=== PATIENT | male | born 1990 | race Caucasian/White ===

== ENCOUNTER 2016-02-29 19:52 | Emergency (ER) | payer BC ==
[2016-02-29 21:25] VITALS: BP 140/79; O2SAT 100
--- NOTE | 2016-02-29 22:14 | RAD ---
EXAM DESCRIPTION: XR ELBOW 1-2 VIEWS CLINICAL HISTORY: 25 y/o M"pulled something in arm 2 days ago, swelling COMPARISON: None. TECHNIQUE: Two views of the left elbow. FINDINGS: No acute fractures or dislocations are identified. No osseous destructive lesions. No abnormal elbow fat pad. Stranding in the subcutaneous tissues consistent with edema, changes from cellulitis or contusion. IMPRESSION: No acute osseous abnormality is identified. There is stranding in the subcutaneous fatty tissues which could be edema, cellulitis or contusion. Electronically signed by: Jared Alonzo MD 02/29/2016 22:12
[2016-02-29] MEDS ORDERED: KETOROLAC TROMETHAMINE INJ 60 MG/2 ML VIAL IM ONE ×2 (22:25→22:33)
== END 2016-02-29 23:30 | disposition left against medical advice (07) ==
LOC: ER 19:52
DX: Z53.21 Procedure and treatment not carried out due to patient leaving prior to being seen by health care provider (principal)
CPT/HCPCS: 73070; J1885

== ENCOUNTER 2016-03-01 00:27 | Emergency (ER) | payer BC ==
[2016-03-01 01:01] VITALS: O2SAT 98
[2016-03-01] MEDS ORDERED: SODIUM CHLORIDE 0.9% 1000ML 1,000 ML IVS ONE (01:52)
[2016-03-01] MEDS ORDERED: CLINDAMYCIN IV 600MG 600 MG in PREMIX BAG 1 BAG IVPB ONE (01:55)
[2016-03-01] MEDS ORDERED: CLINDAMYCIN IV 600MG 50 ML IVPB ONE (02:05)
--- NOTE | 2016-03-01 03:55 | ED.PDOC ---
History of Present Illness - General Chief Complaint: Upper Extremity Injury Stated Complaint: Swelling, pain, redness to left arm Time Seen by Provider: 03/01/16 01:02 Source: patient, RN notes reviewed, Vital Signs reviewed Exam Limitations: no limitations - History of Present Illness Initial Comments: Patient is a 25 y/o male who was in the ER earlier today and left AMA. Patient has had swelling in his left arm for 4 days. He picked up a candle molder at a friends house, and his arm has been sore since. Now it is swollen with erythema and pain. Patient denies any injury other than picking up the candle molder. He left earlier today because he was tired of waiting and his children needed to get home. Occurred: other - 4 days ago Pain - Upper Extremity: severe: Upper arm, left, Elbow, left, Forearm, left, Wrist, left Method of Injury: unknown Improving Factors: immobilization Worsening Factors: movement Associated Symptoms: fatigue Allergies/Adverse Reactions: Allergies NO KNOWN ALLERGY Allergy (Verified 02/29/16 21:33) Home Medications: Ambulatory Orders Clindamycin HCl 300 mg PO TID #21 cap 03/01/16 Naproxen [Naprosyn] 500 mg PO BID #30 tab 03/01/16 Review of Systems - Review of Systems Constitutional: States: chills EENTM: States: no symptoms reported Respiratory: States: no symptoms reported Cardiology: States: no symptoms reported Gastrointestinal/Abdominal: States: no symptoms reported Genitourinary: States: no symptoms reported Musculoskeletal: States: muscle pain, muscle stiffness Skin: States: change in color Neurological: States: no symptoms reported Endocrine: States: no symptoms reported Hematologic/Lymphatic: States: no symptoms reported All other Systems: Reviewed and Negative Past Medical History (General) - Patient Medical History Hx Seizures: No Hx Stroke: No Hx Dementia: No Hx Asthma: No Hx of COPD: No Hx Cardiac Disorders: No Hx Congestive Heart Failure: No Hx Pacemaker: No Hx Hypertension: No Hx Thyroid Disease: No Hx Diabetes: No Hx Gastroesophageal Reflux: No Hx Renal Disease: No Hx Cancer: No Hx of HIV: No Hx Hepatitis C: No Hx MRSA: No Surgical History: other Family Medical History - Family History Mother Family History: No Known Physical Exam - Physical Exam General Appearance: Alert, Anxious, Obvious distress Eyes, Ears, Nose, Throat Exam: normal ENT inspection Neck: non-tender, full range of motion Cardiovascular/Respiratory: regular rate, rhythm, no M/R/G, normal peripheral pulses, normal breath sounds, no respiratory distress Abdominal Exam: non-tender, no organomegaly Shoulder Exam: normal inspection Elbow/Forearm Exam: limited ROM, pain, soft tissue tenderness, swelling Wrist Exam: limited ROM, pain, soft tissue tenderness, swelling Hand Exam: normal inspection, non-tender, no evidence of injury, normal ROM Neuro/Tendon: responds to pain, no evidence tendon injury Mental Status: alert, oriented x 3 Skin Exam: other - erythema Progress - Results/Orders Results/Orders: 03/01/16 00:54 Pulse Rate [RA] 97 H Blood Pressure 134/91 [RA] O2 Sat by Pulse 98 Oximetry 03/01/16 01:48 URINALYSIS Stat 03/01/16 01:54 URINALYSIS Stat Laboratory Results WBC 12.3 K/mm3 (4.8-10.8) H 03/01/16 01:15 RBC 4.76 M/mm3 (4.70-6.10) 03/01/16 01:15 Hgb 14.9 gm/dL (14.0-18.0) 03/01/16 01:15 Hct 44.6 % (42.0-52.0) 03/01/16 01:15 MCV 93.7 fl (80.0-94.0) 03/01/16 01:15 MCH 31.3 pg (27.0-31.0) H 03/01/16 01:15 MCHC 33.4 g/dL (33.0-37.0) 03/01/16 01:15 RDW 12.9 % (11.5-14.5) 03/01/16 01:15 Plt Count 189 K/mm3 (130-400) 03/01/16 01:15 MPV 7.8 fl (7.40-10.4) 03/01/16 01:15 Absolute Neuts (auto) 8.50 K/uL (1.8-6.8) H 03/01/16 01:15 Absolute Lymphs (auto) 2.70 K/uL (1.0-3.4) 03/01/16 01:15 Absolute Monos (auto) 0.90 K/uL (0.2-0.8) H 03/01/16 01:15 Absolute Eos (auto) 0.10 K/uL (0.0-0.4) 03/01/16 01:15 Absolute Basos (auto) 0.10 K/uL (0.0-0.1) 03/01/16 01:15 Neutrophils % 69.4 % (42.0-78.0) 03/01/16 01:15 Lymphocytes % 21.7 % (20.0-50.0) 03/01/16 01:15 Monocytes % 7.4 % (2.0-9.0) 03/01/16 01:15 Eosinophils % 0.9 % (1.0-5.0) L 03/01/16 01:15 Basophils % 0.6 % (0.0-2.0) 03/01/16 01:15 D-Dimer, Quantitative < 200 ng/mL (0-230) 03/01/16 01:15 Sodium 135 mmol/L (135-145) 03/01/16 01:15 Potassium 3.4 mmol/L (3.6-5.0) L 03/01/16 01:15 Chloride 101 mmol/L (101-111) 03/01/16 01:15 Carbon Dioxide 28 mmol/L (21-31) 03/01/16 01:15 Anion Gap 9.4 (12-18) L 03/01/16 01:15 BUN 15 mg/dL (7-18) 03/01/16 01:15 Creatinine 1.01 mg/dL (0.6-1.3) 03/01/16 01:15 BUN/Creatinine Ratio 14.9 (10-20) 03/01/16 01:15 Random Glucose 130 mg/dL (70-105) H 03/01/16 01:15 Serum Osmolality 272.7 mOsm/L (275-295) L 03/01/16 01:15 Calcium 8.9 mg/dL (8.4-10.2) 03/01/16 01:15 Creatine Kinase 613 IU/L (38-174) H* 03/01/16 01:15 - EKG/XRAY/CT XRAY: elbow Xray Comments: Soft tissue changes, o/w normal. Departure - Departure Clinical Impression: Cellulitis Qualifiers: Site of cellulitis: extremity Site of cellulitis of extremity: upper extremity Laterality: left Qualifier Code: (L03.114) Cellulitis of left upper limb Time of Disposition: 04:00 Disposition: Discharge to Home or Self Care Condition: Fair Departure Forms: ED Discharge - Pt. Copy, Patient Portal Self Enrollment Instructions: DI for Cellulitis -- Adult, Cellulitis Diet: resume usual diet Prescriptions: Clindamycin HCl 300 mg PO TID #21 cap Naproxen [Naprosyn] 500 mg PO BID #30 tab Home Medications: Ambulatory Orders Clindamycin HCl 300 mg PO TID #21 cap 03/01/16 Naproxen [Naprosyn] 500 mg PO BID #30 tab 03/01/16 Additional Instructions: Follow up with PCP in 2 days or ED if symptoms worsen.
[2016-03-01 04:49] VITALS: BP 138/84
== END 2016-03-01 04:40 | disposition home or self-care (01) ==
LOC: ER 00:27
DX: L03.114 Cellulitis of left upper limb (principal)
CPT/HCPCS: 36415; 80048; 82550; 85025; 85379; J3490; J7030

== ENCOUNTER 2018-01-07 22:25 | Emergency (ER) | payer SELFPAY ==
[2018-01-07] MEDS ORDERED: TETANUS,DIPHTHERIA,PERTUSSIS 1 EA SYG IM ONE (22:44)
[2018-01-07] MEDS ORDERED: KETOROLAC TROMETHAMINE INJ 30 MG/ML VIAL IV ONE (22:44)
[2018-01-07] MEDS ORDERED: AMPICILLIN & SULBACTAM SODIUM 3 GM in SODIUM CHL 0.9% 100ML MINI-BAG 100 ML IVPB ONE (22:44)
--- NOTE | 2018-01-07 22:47 | ED.PDOC ---
History of Present Illness - General Chief Complaint: Bite: Animal/Insect/Human Time Seen by Provider: 01/07/18 22:44 Source: patient Exam Limitations: no limitations - History of Present Illness Initial Comments: patient comes in today with cat bite to his right thumb. Patient states this morning about 6:00 am a stray cat that hangs around his house was fighting with his house cat. When he tried to separate them he got bit on his right thumb. It is swollen, red, and very painful. He does not have any fever, chills, nausea or vomiting. He is otherwise healthy and has no other medical problems. Timing/Duration: 24 hours Severity: moderate Improving Factors: nothing Worsening Factors: movement Associated Symptoms: denies symptoms Allergies/Adverse Reactions: Allergies NO KNOWN ALLERGY Allergy (Verified 01/07/18 22:51) Home Medications: Ambulatory Orders Amoxicillin & Pot Clavulanate [Augmentin Tab] 875 mg PO BID #20 tab 01/07/18 Review of Systems - Review of Systems Constitutional: States: no symptoms reported. Denies: chills, fever, weakness EENTM: States: no symptoms reported Respiratory: States: no symptoms reported. Denies: cough, short of breath, wheezing Cardiology: States: no symptoms reported. Denies: chest pain, palpitations Gastrointestinal/Abdominal: States: no symptoms reported. Denies: abdominal pain, diarrhea, nausea, vomiting Skin: States: see HPI Past Medical History (General) - Patient Medical History Hx Seizures: No Hx Stroke: No Hx Dementia: No Hx Asthma: No Hx of COPD: No Hx Cardiac Disorders: No Hx Congestive Heart Failure: No Hx Pacemaker: No Hx Hypertension: No Hx Thyroid Disease: No Hx Diabetes: No Hx Gastroesophageal Reflux: No Hx Renal Disease: No Hx Cancer: No Hx of HIV: No Hx Hepatitis C: No Hx MRSA: No Family Medical History - Family History Mother Family History: No Known Physical Exam - Physical Exam General Appearance: Alert, No apparent distress Ears, Nose, Throat: hearing grossly normal Neck: non-tender Respiratory: chest non-tender, lungs clear, normal breath sounds Cardiovascular/Chest: normal peripheral pulses, regular rate, rhythm, no murmur Gastrointestinal/Abdominal: normal bowel sounds Extremity: other - R thumb with puncture wound to pad with swelling, calor, erythema to the MCP joint no fluctulance Departure - Departure Clinical Impression: Bite wound Cellulitis Qualifiers: Site of cellulitis: extremity Site of cellulitis of extremity: finger Laterality: right Qualified Code(s): L03.011 - Cellulitis of right finger Disposition: Discharge to Home or Self Care Departure Forms: ED Discharge - Pt. Copy, Patient Portal Self Enrollment Instructions: DI for Animal Bites Diet: regular diet Referrals: Ana M Diggs NP [Primary Care Provider] - 1-2 Weeks Prescriptions: Amoxicillin & Pot Clavulanate [Augmentin Tab] 875 mg PO BID #20 tab Home Medications: Ambulatory Orders Amoxicillin & Pot Clavulanate [Augmentin Tab] 875 mg PO BID #20 tab 01/07/18 Additional Instructions: follow up with PCP on Tuesday to recheck wound. Return to ER for increased swelling, pain, redness, fever, or emesis
[2018-01-07] MEDS ORDERED: traMADol HCL 50 MG (ER DISP) # 6 TABS PO ONE (22:50)
[2018-01-07] MEDS ORDERED: AMPICILLIN & SULBACTAM SODIUM 3 GM VIAL ONE (22:50)
[2018-01-07 22:51] VITALS: BP 148/81; TEMP 99.1; O2SAT 98
[2018-01-07] MEDS ORDERED: SODIUM CHL 0.9% 100ML MINI-BAG 100 ML IVPB ONE (22:51)
== END 2018-01-07 23:41 | disposition home or self-care (01) ==
LOC: ER 22:25
DX: S61.051A Open bite of right thumb without damage to nail, initial encounter (principal); L03.011 Cellulitis of right finger; W55.01XA Bitten by cat, initial encounter; Z23 Encounter for immunization
CPT/HCPCS: 90471; 90715; J0295; J1885; J7050

== ENCOUNTER 2020-01-15 11:12 | Emergency (ER) | payer SELFPAY ==
[2020-01-15 11:23] VITALS: O2SAT 98
--- NOTE | 2020-01-15 11:31 | ED.PDOC ---
History of Present Illness - General Chief Complaint: ENT Problem Stated Complaint: left ear pain Time Seen by Provider: 01/15/20 11:18 Source: patient Exam Limitations: no limitations Additional Information: the patient is A 29-year-old male that presents to the emergency department complaints of left ear pain. He states that his symptoms began when he got hit in the left ear at work. He denies any LOC any nausea vomiting any ringing in his ears and loss of hearing in his ear.Denies any discharge. States that he tried some peroxide and has not helped - History of Present Illness Timing/Duration: abrupt Severity: moderate EENT Location: ear (L) Prearrival Treatment: over the counter meds Presenting Symptoms: Left ear pain Improving Factors: nothing - Left ear pain Worsening Factors: nothing Associated Symptoms: denies symptoms Allergies/Adverse Reactions: Allergies Penicillins Allergy (Verified 01/15/20 11:23) Home Medications: Ambulatory Orders NK 01/15/20 Review of Systems - Review of Systems Constitutional: Denies: chills, fever EENTM: States: ear pain. Denies: eye pain, blurred vision, tearing, double vision, ear discharge, nose pain, nose congestion, throat pain, throat swelling, mouth pain, mouth swelling Respiratory: Denies: cough, short of breath, stridor Cardiology: Denies: chest pain, palpitations, syncope Genitourinary: Denies: discharge, frequency, hematuria Musculoskeletal: Denies: back pain, gout, muscle pain, muscle stiffness Skin: Denies: change in color Endocrine: Denies: flushing, intolerance to cold Hematologic/Lymphatic: Denies: anemia, easy bleeding All other Systems: Reviewed and Negative Past Medical History (General) - Patient Medical History Hx Seizures: No Hx Stroke: No Hx Dementia: No Hx Asthma: No Hx of COPD: No Hx Cardiac Disorders: No Hx Congestive Heart Failure: No Hx Pacemaker: No Hx Hypertension: No Hx Thyroid Disease: No Hx Diabetes: No Hx Gastroesophageal Reflux: No Hx Renal Disease: No Hx Cancer: No Hx of HIV: No Hx Hepatitis C: No Hx MRSA: No - Vaccination History Hx Tetanus, Diphtheria Vaccination: No Hx Influenza Vaccination: No - Social History Hx Tobacco Use: Yes Hx Alcohol Use: Yes - occasional Family Medical History - Family History Mother Family History: No Known Physical Exam - Physical Exam General Appearance: Alert, Anxious Eye Exam: bilateral normal Ear Exam: right ear: TM normal - ruptured on let . 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 Copy, Patient Portal Self Enrollment Instructions: DI for Ear Pain-Adult Referrals: Patricia Vallecillo MD [Referring] - 1-2 Weeks Home Medications: Ambulatory Orders NK 01/15/20 Additional Instructions: Please ensure to finish your antibiotic prescriptions, and your Ciprodex prescription. Discharge follow-up with outpatient physician in 1 to 2 days.
[2020-01-15] MEDS ORDERED: AZITHROMYCIN 250 MG TAB PO ONE (11:47)
[2020-01-15] MEDS ORDERED: KETOROLAC TROMETHAMINE INJ 30 MG/ML VIAL IM ONE (11:47)
[2020-01-15 12:10] VITALS: BP 131/84; TEMP 97.9
== END 2020-01-15 12:10 | disposition home or self-care (01) ==
LOC: ER 11:12
DX: H66.92 Otitis media, unspecified, left ear (principal); H72.92 Unspecified perforation of tympanic membrane, left ear; Z87.891 Personal history of nicotine dependence; Z88.0 Allergy status to penicillin
CPT/HCPCS: J1885; Q0144